=== PATIENT | female | born 1960 | race Caucasian/White ===

== ENCOUNTER 2017-08-24 08:48 | Emergency (ER) | payer SELFPAY ==
--- NOTE | 2017-08-24 08:59 | EDM.PDOC ---
ED HPI GENERAL MEDICAL PROBLEM - General Chief Complaint: Chest Pain Stated Complaint: CHEST PAINS Time Seen by Provider: 08/24/17 08:57 Source of Information: Reports: Patient History Limitations: Reports: No Limitations - History of Present Illness INITIAL COMMENTS - FREE TEXT/NARRATIVE: PT HAS PAIN ON HER LEFT LATERAL CHEST. tHIS IS PARTICULARLY PAINFUL WHEN SHE TAKES A DEEP BREATH AND MOVES. sHE HAS NOT HAD A RECENT COUGH. Onset: Gradual Duration: Hour(s): Location: Reports: Chest Associated Symptoms: Reports: Chest Pain, Shortness of Breath, Other ( HURTS TO TAKE A DEP BREATH. ) Middle Chest Pain Score (Numeric/FACES): 6 - Related Data Allergies Allergy/AdvReac Type Severity Reaction Status Date / Time cephalexin [From Keflex] Allergy Hives Verified 08/24/17 09:53 erythromycin base Allergy Hives Verified 08/24/17 09:53 Home Meds: Home Meds NK [No Known Home Meds] 08/24/17 [History] ED ROS GENERAL - Review of Systems Review Of Systems: See Below Constitutional: Reports: No Symptoms HEENT: Reports: No Symptoms Respiratory: Reports: Pleuritic Chest Pain, Other (pt has pain in the left chest wall area. The pain comnes around to the front) Cardiovascular: Reports: Chest Pain, Other ( Pain in left lateral chest which comes around from the back to the front. ) Endocrine: Reports: No Symptoms GI/Abdominal: Reports: No Symptoms : Reports: No Symptoms Musculoskeletal: Reports: Other ( Pain in left chest. ) Skin: Reports: No Symptoms ED EXAM, GENERAL - Physical Exam Exam: See Below Free Text/Narrative:: pt arrives with pain in left chest. It hurts when she moves and takes a deep breath She has not had a fall. Exam Limited By: No Limitations General Appearance: Alert, Anxious, Moderate Distress Ears: Normal TMs Nose: Normal Inspection Throat/Mouth: Normal Inspection Head: Atraumatic Neck: Normal Inspection Respiratory/Chest: Other (pain in the left chest with deep breathing. ) Cardiovascular: Regular Rate, Rhythm GI/Abdominal: Soft, Non-Tender (Female) Exam: Deferred Rectal (Female) Exam: Deferred Back Exam: Normal Inspection, Other (pain in left chest, mild tenderness to palpate. ) Extremities: Normal Inspection Neurological: Alert, Oriented, Normal Cognition Psychiatric: Normal Affect Course - Vital Signs Last Recorded V/S: Last Vital Signs Temp 35.8 C 08/24/17 08:57 Pulse 79 08/24/17 08:57 Resp 17 08/24/17 08:57 BP 150/83 H 08/24/17 08:57 Pulse Ox 96 08/24/17 08:57 - Orders/Labs/Meds Orders: Active Orders 24 hr Category Date Time Status EKG Documentation Completion [RC] ASDIRECTED Care 08/24/17 08:50 Active Chest 1V Frontal [CR] Stat Exams 08/24/17 08:56 Taken UA W/MICROSCOPIC [URIN] Urgent Lab 08/24/17 10:00 Ordered EKG 12 Lead [EK] Routine Ther 08/24/17 08:50 Ordered Labs: Laboratory Tests 08/24/17 08/24/17 08/24/17 Range/Units 09:06 09:06 09:40 WBC 6.9 (4.5-11.0) K/uL RBC 4.72 (3.30-5.50) M/uL Hgb 14.5 (12.0-15.0) g/dL Hct 43.6 (36.0-48.0) % MCV 92 (80-98) fL MCH 31 (27-31) pg MCHC 33 (32-36) % Plt Count 227 (150-400) K/uL Neut % (Auto) 58 (36-66) % Lymph % (Auto) 30 (24-44) % Ada % (Auto) 9 H (2-6) % Eos % (Auto) 3 (2-4) % Baso % (Auto) 1 (0-1) % Sodium 141 (140-148) mmol/L Potassium 3.8 (3.6-5.2) mmol/L Chloride 103 (100-108) mmol/L Carbon Dioxide 32 (21-32) mmol/L Anion Gap 5.6 (5.0-14.0) mmol/L BUN 13 (7-18) mg/dL Creatinine 1.0 (0.6-1.0) mg/dL Est Cr Clr Drug Dosing 58.11 mL/min Estimated GFR (MDRD) 57 L (>60) Glucose 96 (74-106) mg/dL Calcium 9.0 (8.5-10.1) mg/dL Total Bilirubin 0.5 (0.2-1.0) mg/dL AST 22 (15-37) U/L ALT 29 (12-78) U/L Alkaline Phosphatase 64 (46-116) U/L Troponin I < 0.017 (0.000-0.056) ng/mL C-Reactive Protein 0.09 (0.0-0.3) mg/dL Total Protein 7.5 (6.4-8.2) g/dL Albumin 3.7 (3.4-5.0) g/dL Globulin 3.8 H (2.3-3.5) g/dL Albumin/Globulin Ratio 1.0 L (1.2-2.2) Meds: Medications Discontinued Medications Generic Name Dose Route Start Last Admin Trade Name Freq PRN Reason Stop Dose Admin Ketorolac Tromethamine 60 mg 08/24/17 09:41 08/24/17 09:57 Toradol IM 08/24/17 09:42 60 mg ONETIME ONE Administration - Re-Assessments/Exams Free Text/Narrative Re-Assessment/Exam: 08/24/17 10:21 chest xray revealed no infiltrate crp is only mildly elevated. The trop and ekg looked good. Pt was given torodol with relief. Departure - Departure Time of Disposition: 10:22 Disposition: Home, Self-Care 01 Condition: Fair Clinical Impression: Chest wall pain, Pleural disorder Referrals: PCP,None [Primary Care Provider] - Forms: ED Department Discharge Care Plan Goals: push fluids, encourage deep breathing, torodol 10mg q6h prn for pain. rtc if increased problems. - My Orders Last 24 Hours: My Active Orders 08/24/17 08:50 EKG Documentation Completion [RC] ASDIRECTED EKG 12 Lead [EK] Routine 08/24/17 08:56 Chest 1V Frontal [CR] Stat 08/24/17 10:00 UA W/MICROSCOPIC [URIN] Urgent - Assessment/Plan Last 24 Hours: My Active Orders 08/24/17 08:50 EKG Documentation Completion [RC] ASDIRECTED EKG 12 Lead [EK] Routine 08/24/17 08:56 Chest 1V Frontal [CR] Stat 08/24/17 10:00 UA W/MICROSCOPIC [URIN] Urgent
[2017-08-24] MEDS ORDERED: Ketorolac 60 MG/2 ML SDV IM ONE (09:41)
--- NOTE | 2017-08-24 11:52 | CR ---
Heart size upper limits of normal. Pulmonary vascular within normal limits. No focal consolidation.
== END 2017-08-24 10:36 | disposition home or self-care (01) ==
LOC: JP.ED 08:48
DX: R07.89 Other chest pain (principal); J98.8 Other specified respiratory disorders; Z88.1 Allergy status to other antibiotic agents
CPT/HCPCS: 36415; 71010; 80053; 81001; 84484; 85025; 86140; 93005; 96372; 99285; J1885; 93010; 99284